=== PATIENT | male | born 1945 | race Caucasian/White ===

== ENCOUNTER 2018-04-16 13:22 | Emergency (ER) | payer OTHER, SELFPAY ==
[2018-04-16 13:44] VITALS: BP 184/83; PULSE 78; RESP 18; TEMP 36.4; O2SAT 97
--- NOTE | 2018-04-16 14:34 | DI.US.S_ITS ---
PROCEDURE: US PERIPH VENOUS LOW EXTREM LT INDICATIONS: PAIN TECHNIQUE: Real-time imaging, as well as color and pulse Doppler interrogation, were performed of the lower extremity deep veins from the inguinal ligament to the popliteal fossa. COMPARISON: None. FINDINGS: The deep veins are normally compressible, and free of intraluminal thrombus. Color and pulse Doppler demonstrate normal phasic intraluminal flow. There is normal augmentation response to distal compression maneuver. IMPRESSION: Negative for deep venous thrombosis. Dictated by: Anmol Narayan M.D. on 04/16/2018 at 14:06 Approved by: Anmol Narayan M.D. on 04/16/2018 at 14:06
--- NOTE | 2018-04-16 14:44 | ED.LOWEXIN ---
HPI - Extremity Injury (Lower) <Elizabeth Quinn PA-C - Last Filed: 04/16/18 21:42> General Chief Complaint: Extremity Injury, Lower Stated Complaint: LEFT KNEE UNUSUAL PAIN Time Seen by Provider: 04/16/18 14:25 Source: patient Mode of arrival: ambulatory Limitations: no limitations History of Present Illness HPI Narrative: This 72-year-old gentleman who has a history of arthritis in his left knee was sent here by the walk-in clinic today due to pain behind the knee. He states that he flew here from [place] yesterday and then was in the car for a couple of hours. He has not been immobilized otherwise. He states that he noticed pain behind the knee starting last night. He also has difficulty straightening the knee fully. He denies any other new symptoms such as chest pain, dyspnea, or abdominal complaints. He has no history of previous blood clots. He has never been a smoker. He does note that he has a history of hypertension but is treating this with foods and herbs such as garlic rather than prescription meds. Review of Systems <Elizabeth Quinn PA-C - Last Filed: 04/16/18 21:42> Review of Systems All systems reviewed & are unremarkable except as noted in HPI and below PFSH <Elizabeth Quinn PA-C - Last Filed: 04/16/18 21:42> Comment: Denies ETOH or street drugs Exam <Elizabeth Quinn PA-C - Last Filed: 04/16/18 21:42> Narrative Exam Narrative: GENERAL APPEARANCE: Patient sitting comfortably, in no distress. NECK/THYROID: Neck supple LUNGS: Clear to auscultation bilaterally. HEART: Regular rate and rhythm without murmur, normal S1, S2, no S3 or S4. EXTREMITIES: No cyanosis or edema. No calf tenderness. Left pedal pulses intact NEUROLOGIC: Alert and oriented, normal speech, and coordination. DERMATOLOGIC: No exanthem MS: Trace left knee effusion with mild tenderness across the joint line. He can fully extend the knee but flexion somewhat limited secondary to tenderness. There is moderate crepitus. He has moderate tenderness posterior to the knee in the popliteal space, no tenderness elsewhere over the lower leg, ankle or foot Initial Vital Signs Initial Vital Signs: Vital Signs Temperature 97.6 F 04/16/18 13:44 Pulse Rate 78 04/16/18 13:44 Respiratory Rate 18 04/16/18 13:44 Blood Pressure 184/83 H 04/16/18 13:44 Pulse Oximetry 97 04/16/18 13:44 <DO Manda Cancino Last Filed: 04/18/18 07:47> Initial Vital Signs Initial Vital Signs: Vital Signs Temperature 97.6 F 04/16/18 13:44 Pulse Rate 78 04/16/18 13:44 Respiratory Rate 18 04/16/18 13:44 Blood Pressure 184/83 H 04/16/18 13:44 Pulse Oximetry 97 04/16/18 13:44 Course <Elizabeth Quinn PA-C - Last Filed: 04/16/18 21:42> Orders Ordered: ED Orders 04/16/18 14:34 US periph venous low extrem lt Stat Vital Signs - 8 hr 04/16/18 13:44 04/16/18 15:06 04/16/18 15:23 Temperature 97.6 F Pulse Rate 78 60 Pulse Rate [Bilateral Dorsalis Pedis] 78 Respiratory Rate 18 Blood Pressure 184/83 H Blood Pressure [Left Arm] 178/86 H Pulse Oximetry 97 97 <DO Manda Cancino Last Filed: 04/18/18 07:47> Orders Ordered: ED Orders 04/16/18 14:34 US periph venous low extrem lt Stat Vital Signs - 8 hr 04/16/18 13:44 04/16/18 15:06 04/16/18 15:23 Temperature 97.6 F Pulse Rate 78 60 Pulse Rate [Bilateral Dorsalis Pedis] 78 Respiratory Rate 18 Blood Pressure 184/83 H Blood Pressure [Left Arm] 178/86 H Pulse Oximetry 97 97 MDM - Extremity Injury (Lower) <MEERA Holley Last Filed: 04/16/18 21:42> Imaging Data Venous US: Radiologist's impression: [address] [address] Ultrasound Report Signed Patient: René Chandler MR#: [id number] : 1945 Acct:[id number] Age/Sex: 72 / M Date of Service: 04/16/18 Loc: ED Accession Number: [id number] Procedure: US periph venous low extrem lt Ordering Provider: Elizabeth Quinn P.A-C PROCEDURE: US PERIPH VENOUS LOW EXTREM LT INDICATIONS: PAIN TECHNIQUE: Real-time imaging, as well as color and pulse Doppler interrogation, were performed of the lower extremity deep veins from the inguinal ligament to the popliteal fossa. COMPARISON: None. FINDINGS: The deep veins are normally compressible, and free of intraluminal thrombus. Color and pulse Doppler demonstrate normal phasic intraluminal flow. There is normal augmentation response to distal compression maneuver. IMPRESSION: Negative for deep venous thrombosis. Dictated by: Anmol Narayan M.D. on 04/16/2018 at 14:06 Approved by: Anmol Narayan M.D. on 04/16/2018 at 14:06 Discharge Plan Departure Patient Disposition: Home Clinical Impression: Osteoarthritis Discharge Date/Time: 04/16/18 15:34 Interventions: ED Discharge Assessment Last Done: 04/16/18 15:38 Instructions: Certain Exercises May Help People with Knee Osteoarthritis Activity Restrictions/Additional Instructions: Please return as we talked about if you have any new or acutely worsening symptoms during your visit. Otherwise, please try ice, Aleve with food 1 tablet twice daily for the next 2 or 3 days until your knee is feeling better, and you can add Tylenol as needed. There were no blood clots on your scan today, and clinically you do not appear to have one. I suspect that your pain is probably due to arthritis and being immobilized for quite awhile. Please see your PCP if this is not improved in the next week or so. We have given you and ice pack today and you can also try applying heat as well as [id number] topical rubs or for percent lidocaine patches. Referrals: [facility] [Other] <Eve Reyes, - Last Filed: 04/18/18 07:47> Cosign ED Attending [place] Attestation: I was immediately available in the department for consultation. Documentation has been reviewed. I agree with assessment and plan.
[2018-04-16 15:06] VITALS: PULSE 78
[2018-04-16 15:23] VITALS: BP 178/86; PULSE 60; O2SAT 97
== END 2018-04-16 15:34 | disposition home or self-care (01) ==
PROVIDERS: Emergency Provider Internal Medicine
DX: M19.90 Unspecified osteoarthritis, unspecified site (principal)
CPT/HCPCS: 93971; 99282; 99284